=== PATIENT | female | born 1985 | race Hispanic/Latino ===

== ENCOUNTER 2018-02-08 00:21 | Emergency (ER) | payer OTHER ==
[2018-02-08] MEDS ORDERED: PHENobarbital INJ 65 MG/ML VIAL (J2560) IV (00:26)
[2018-02-08 01:45] LABS: ANION GAP 8 MEQ/L (8-16); BLOOD UREA NITROGEN 11 MG/DL (7-18); CALCIUM LEVEL 8.8 MG/DL (8.5-10.1); CARBON DIOXIDE LEVEL 25 MEQ/L (21-32); CHLORIDE LEVEL 104 MEQ/L (98-107); CREATININE FOR GFR 0.62 MG/DL (0.55-1.30); FREE THYROXINE INDEX 3.7 % (1.3-4.8); GLOMERULAR FILTRATION RATE > 60.0 (>60); GLUCOSE, FASTING 104 MG/DL (70-100); MAGNESIUM LEVEL 1.7 MG/DL (1.8-2.4); POTASSIUM SERUM 3.7 MEQ/L (3.5-5.1); SODIUM LEVEL 137 MEQ/L (136-145); T UPTAKE 36 % (30-39); THYROXINE (T4) 10.2 UG/DL (4.5-12.0)
[2018-02-08] MEDS: MAGNESIUM OXIDE 400 MG TAB (MAG-OX) PO (02:19)
[2018-02-08] MEDS: LORazepam 1 MG TAB PO (02:19)
== END 2018-02-08 03:12 | disposition home or self-care (01) ==
LOC: M ED 00:21
DX: I49.3 Ventricular premature depolarization (principal); E83.42 Hypomagnesemia; F41.9 Anxiety disorder, unspecified; Q21.3 Tetralogy of Fallot
CPT/HCPCS: 93005

== ENCOUNTER → 2018-04-16 | Outpatient (REF) | payer OTHER | LOC: M LAB REF 13:17 | PROVIDERS: ATTEND Family Medicine Addiction Medicine | DX: R30.0 Dysuria (principal) ==

== ENCOUNTER → 2018-05-03 | Outpatient (REF) | payer OTHER ==
[2018-05-03 15:43] LABS: APPEARANCE, URINE CLEAR (CLEAR); BACTERIA, URINE AUTO 1+ (NEGATIVE); BILIRUBIN, URINE AUTO NEGATIVE (NEGATIVE); BLOOD, URINE BLOOD 2+ (NEGATIVE); COLOR, URINE YELLOW (YELLOW); GLUCOSE, URINE (UA) AUTO NEGATIVE (NEGATIVE); KETONE, URINE AUTO NEGATIVE (NEGATIVE); LEUKOCYTE ESTERASE, URINE AUTO NEGATIVE (NEGATIVE); MUCUS, URINE SMALL (NEGATIVE); NITRITE, URINE AUTO NEGATIVE (NEGATIVE); PROTEIN, URINE AUTO NEGATIVE (NEGATIVE); RBC, URINE AUTO 6 /HPF (0-3); SPECIFIC GRAVITY URINE AUTO 1.008 (1.002-1.035); SQUAMOUS EPITHELIAL CELL UR AU 2 /HPF (0-6); UROBILINOGEN, URINE AUTO 0.2 mg/dL (0.0-2.0); WBC, URINE AUTO 1 /HPF (0-3)
== END ==
LOC: M LAB REF 15:12
PROVIDERS: ATTEND Family Medicine Addiction Medicine
DX: R31.29 Other microscopic hematuria (principal)

== ENCOUNTER → 2018-05-12 | Outpatient (REF) | payer OTHER ==
[2018-05-12 19:03] LABS: APPEARANCE, URINE CLEAR (CLEAR); BACTERIA, URINE AUTO NEGATIVE (NEGATIVE); BILIRUBIN, URINE AUTO NEGATIVE (NEGATIVE); BLOOD, URINE BLOOD 1+ (NEGATIVE); COLOR, URINE YELLOW (YELLOW); GLUCOSE, URINE (UA) AUTO NEGATIVE (NEGATIVE); KETONE, URINE AUTO NEGATIVE (NEGATIVE); LEUKOCYTE ESTERASE, URINE AUTO NEGATIVE (NEGATIVE); MUCUS, URINE SMALL (NEGATIVE); NITRITE, URINE AUTO NEGATIVE (NEGATIVE); PROTEIN, URINE AUTO NEGATIVE (NEGATIVE); RBC, URINE AUTO 14 /HPF (0-3); SPECIFIC GRAVITY URINE AUTO 1.021 (1.002-1.035); SQUAMOUS EPITHELIAL CELL UR AU 0 /HPF (0-6); UROBILINOGEN, URINE AUTO 0.2 mg/dL (0.0-2.0); WBC, URINE AUTO 0 /HPF (0-3)
== END ==
LOC: M SMT 17:06
PROVIDERS: ATTEND Nurse Practitioner Family
DX: R31.29 Other microscopic hematuria (principal)
CPT/HCPCS: 81001; 87086; 88108; G0463

== ENCOUNTER → 2018-05-24 | Outpatient (CLI) | payer OTHER ==
--- NOTE | 2018-05-25 02:26 | REP ---
Clinical: Congenital heart disease . Comparison: None . Technique: PA and lateral. Findings: The mediastinum and cardiac silhouette are relatively normal. Evidence of prior pediatric sternotomy. The lung parmar are clear and without acute consolidation, effusion, or pneumothorax. The skeletal structures are intact and normal. Impression: 1. No acute cardiopulmonary process. Electronically Signed by Rafael Cifuentes MD 05/25/2018 02:17 A
== END ==
LOC: M SMT 10:22
PROVIDERS: ATTEND Internal Medicine Cardiovascular Disease
DX: Q24.9 Congenital malformation of heart, unspecified (principal)

== ENCOUNTER → 2018-06-02 | Outpatient (REF) | payer OTHER ==
[2018-06-02 19:16] LABS: APPEARANCE, URINE CLEAR (CLEAR); BACTERIA, URINE AUTO 1+ (NEGATIVE); BILIRUBIN, URINE AUTO NEGATIVE (NEGATIVE); BLOOD, URINE BLOOD 1+ (NEGATIVE); COLOR, URINE COLORLESS (YELLOW); GLUCOSE, URINE (UA) AUTO NEGATIVE (NEGATIVE); KETONE, URINE AUTO NEGATIVE (NEGATIVE); LEUKOCYTE ESTERASE, URINE AUTO NEGATIVE (NEGATIVE); NITRITE, URINE AUTO NEGATIVE (NEGATIVE); PROTEIN, URINE AUTO NEGATIVE (NEGATIVE); RBC, URINE AUTO 2 /HPF (0-3); SPECIFIC GRAVITY URINE AUTO 1.002 (1.002-1.035); SQUAMOUS EPITHELIAL CELL UR AU 0 /HPF (0-6); UROBILINOGEN, URINE AUTO 0.2 mg/dL (0.0-2.0); WBC, URINE AUTO 0 /HPF (0-3)
== END ==
LOC: M LABSMT 15:00
PROVIDERS: ATTEND Urology Pediatric Urology
DX: R31.0 Gross hematuria (principal)

== ENCOUNTER → 2018-06-08 | Outpatient (CLI) | payer OTHER ==
[~2018-06-08] MED LIST: FUROSEMIDE 20 MG/2 ML VIAL (J1940) As Ordered ONE
--- NOTE | 2018-06-08 09:40 | REP ---
Nuclear renal scintigraphy with differential flow and function analysis: The study includes post Lasix venography. HISTORY: Gross hematuria. Frequency, urgency. Pyelonephritis. Incomplete bladder emptying. Recurrent UTI. TECHNIQUE: 8.8 mCi technetium 99m Mag 3 is injected and sequential posterior flow and excretory phase images are acquired. Renal cortical regions of interest are drawn and time activity curves are plotted for renal function analysis. 20 mg of intravenous Lasix is administered and post Lasix venography is acquired. SCINTIGRAPHIC FINDINGS: The posterior flow study shows normal symmetric renal bed perfusion. The right kidney appears somewhat smaller than left. 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 There is no evidence of obstructive uropathy. Differential function analysis is normal with 51% of overall renal cortical counts coming from the left kidney and 49% from the right. Rlpu-ld-[id number] activity is normal bilaterally at 2.0 minutes. Ajia-ug-sirr max activity is normal bilaterally, measured at 7.1 minutes on the left and 5.4 minutes on the right. Post Lasix venography shows no additional finding. Fxuc-bt-ewjl max Lasix activity is 8.5 minutes bilaterally. Renal excretion curves are normal and symmetric. 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 No other abnormality. There is no evidence of obstructive uropathy. Electronically Signed by Joe Crowe MD 06/08/2018 11:11 A
== END ==
LOC: M RAD 07:45
PROVIDERS: ATTEND Urology Pediatric Urology
DX: R31.0 Gross hematuria (principal); R35.0 Frequency of micturition; N31.8 Other neuromuscular dysfunction of bladder; N12 Tubulo-interstitial nephritis, not specified as acute or chronic; K59.00 Constipation, unspecified; R33.9 Retention of urine, unspecified; N39.0 Urinary tract infection, site not specified; T43.61 Poisoning by, adverse effect of and underdosing of caffeine
CPT/HCPCS: 78708; A9562; J1940

== ENCOUNTER → 2018-06-11 | Outpatient (CLI) | payer OTHER ==
--- NOTE | 2018-06-11 13:29 | REP ---
Renal bladder ultrasound for hematuria: The right kidney measures 9.6 x 4.9 x 4.0 cm. The left kidney measures 12.5 by 4.0 x 6.0 cm. Renal cortical echogenicity is normal bilaterally. There is no calculus or hydronephrosis on the right on the left. There are no solid or cystic masses on the right on the left. Renal cortical echogenicity is normal bilaterally. Bladder ultrasound: The bladder is incompletely distended, therefore evaluation of the bladder wall is insensitive. With color Doppler assessment. No ureteral jets could be identified into the urinary bladder, however, there is no hydronephrosis. Impression: Negative renal ultrasound. The bladder is incompletely distended and cannot be adequately evaluated. Electronically Signed by Avinash Shultz MD 06/11/2018 01:21 P
== END ==
LOC: M RAD 12:35
PROVIDERS: ATTEND Urology Pediatric Urology
DX: R31.0 Gross hematuria (principal); N32.89 Other specified disorders of bladder; R35.0 Frequency of micturition; N31.8 Other neuromuscular dysfunction of bladder; N12 Tubulo-interstitial nephritis, not specified as acute or chronic; K59.00 Constipation, unspecified; R33.9 Retention of urine, unspecified; N39.0 Urinary tract infection, site not specified; T43.61 Poisoning by, adverse effect of and underdosing of caffeine

== ENCOUNTER → 2018-06-18 | Outpatient (CLI) | payer OTHER ==
[2018-06-18 10:46] LABS: BASO % 0.6 % (0.0-1.0); EOS # 0.1 10^3/uL (0.0-0.50); HEMATOCRIT 36.1 % (36.0-47.0); HEMOGLOBIN 12.3 g/dl (12.0-15.5); LYMPH # 1.5 10^3/uL (1.5-4.5); LYMPH % 30.3 % (24.0-44.0); MEAN CORPUSCULAR HEMOGLOBIN 30.9 pg (27.0-33.0); MEAN CORPUSCULAR HGB CONC 34.1 g/dl (32.0-36.5); MEAN CORPUSCULAR VOLUME 90.7 fl (80.0-96.0); MONO # 0.4 10^3/uL (0.0-0.8); MONO % 7.1 % (0.0-5.0); PLATELET COUNT, AUTOMATED 257 10^3/uL (150-450); RED BLOOD COUNT 3.98 10^6/uL (4.00-5.40); WHITE BLOOD COUNT 4.9 10^3/uL (4.0-10.0)
[2018-06-18 10:52] LABS: COLLAGEN EPINEPHRINE 143 SECONDS (74-162)
[2018-06-18 11:06] LABS: ALT/SGPT 15 U/L (12-78); BILIRUBIN,TOTAL 1.2 MG/DL (0.2-1.0); BLOOD UREA NITROGEN 8 MG/DL (7-18); CALCIUM LEVEL 8.7 MG/DL (8.5-10.1); CARBON DIOXIDE LEVEL 31 MEQ/L (21-32); CHLORIDE LEVEL 107 MEQ/L (98-107); CREATININE FOR GFR 0.56 MG/DL (0.55-1.30); GLOMERULAR FILTRATION RATE > 60.0 (>60); GLUCOSE, FASTING 88 MG/DL (70-100); POTASSIUM SERUM 4.2 MEQ/L (3.5-5.1); SODIUM LEVEL 141 MEQ/L (136-145); TOTAL PROTEIN 7.6 GM/DL (6.4-8.2)
== END ==
LOC: M LAB 10:04
PROVIDERS: ATTEND Urology Pediatric Urology
DX: R31.0 Gross hematuria (principal)

== ENCOUNTER → 2018-06-24 | Outpatient (REF) | payer OTHER ==
[2018-07-01 14:21] LABS: HPV HYBRID CAPTURE II Negative (Negative)
== END ==
LOC: M LAB REF 14:25
PROVIDERS: ATTEND Advanced Practice Midwife
DX: Z12.4 Encounter for screening for malignant neoplasm of cervix (principal)
CPT/HCPCS: 87624; G0123

== ENCOUNTER → 2018-11-12 | Outpatient (REF) | payer OTHER | LOC: M LAB REF 15:43 | PROVIDERS: ATTEND Physician Assistant | DX: N39.0 Urinary tract infection, site not specified (principal) ==

== ENCOUNTER 2019-02-04 20:06 | Emergency (ER) | payer OTHER ==
[~2019-02-04] VITALS: Ht 170.2 cm; Wt 66.4 kg
[2019-02-04] MEDS ORDERED: CARV12.5 PO (20:12)
[2019-02-04] MEDS ORDERED: NS 1,000 ML IV ONE (21:00)
[2019-02-04] MEDS ORDERED: ONDANSETRON 4MG/2ML VIAL (J2405) IV ONE (21:00)
[2019-02-04] MEDS ORDERED: KETOROLAC 30 MG/ML VIAL (J1885) IV ONE (21:00)
[2019-02-04 21:34] LABS: BASO % 0.3 % (0.0-1.0); EOS # 0.2 10^3/uL (0.0-0.5); EOS % 1.6 % (0.0-3.0); HEMATOCRIT 37.9 % (36.0-47.0); HEMOGLOBIN 12.7 g/dl (12.0-15.5); LYMPH # 1.3 10^3/uL (1.5-5.0); LYMPH % 11.9 % (24.0-44.0); MEAN CORPUSCULAR HEMOGLOBIN 31.8 pg (27.0-33.0); MEAN CORPUSCULAR HGB CONC 33.5 g/dl (32.0-36.5); MEAN CORPUSCULAR VOLUME 94.8 fl (80.0-96.0); MONO # 0.7 10^3/uL (0.0-0.8); MONO % 6.8 % (0.0-5.0); NEUTROPHILS # 8.6 10^3/uL (1.5-8.5); PLATELET COUNT, AUTOMATED 233 10^3/uL (150-450); WHITE BLOOD COUNT 10.8 10^3/uL (4.0-10.0)
--- NOTE | 2019-02-04 22:17 | REPVR ---
PROCEDURE INFORMATION: Exam: US Pelvis Complete, Transabdominal Exam date and time: 02/04/2019 9:48 PM Clinical history: 34 years old, female; Pelvic pain; Additional info: L pelvic pain, HX cysts TECHNIQUE: Imaging protocol: Real-time transabdominal pelvic ultrasound with image documentation. Complete exam. COMPARISON: RENAL US 06/11/2018 12:55 PM FINDINGS: Uterus/cervix: Uterus measures 9.3 x 4 x 7.1 cm. Endometrial echocomplex measures 5.2 mm. Right adnexa: Right ovary measures 3.4 x 3.1 x 1.7 cm. Resistive index 0.61 Left adnexa: Left ovary measures 2.8 x 1.7 x 2.7 cm. Resistive index 0.57 Free fluid: None. Bladder: Normal. IMPRESSION: Unremarkable examination. Electronically signed by: Javi Barrientos On 02/04/2019 22:17:15 PM
[2019-02-04] MEDS ORDERED: diphenhydrAMINE INJ 50MG/ML VIAL (J1200) IV STA (22:33)
[2019-02-04 22:48] VITALS: BP 125/80
== END 2019-02-04 22:50 | disposition home or self-care (01) ==
LOC: M ED 20:06
DX: R10.2 Pelvic and perineal pain (principal); Z79.899 Other long term (current) drug therapy
CPT/HCPCS: 76856; 80047; 81001; 84702; 85025; 96374; 96375; 99284; J1200; J1885; J2405

== ENCOUNTER → 2019-02-11 | Outpatient (REF) | payer OTHER ==
[~2019-02-11] MED LIST changes: +CARV12.5 PO; -FUROSEMIDE 20 MG/2 ML VIAL (J1940) As Ordered ONE
== END ==
LOC: M LAB REF 14:11
PROVIDERS: ATTEND Physician Assistant
DX: R35.0 Frequency of micturition (principal)